=== PATIENT | female | born 1940 | race Caucasian/White ===

== ENCOUNTER → 2020-05-09 | Outpatient (CLI) | payer MEDICARE ==
[~2020-05-09] MED LIST: ACET650T15 PO; AMLO1TAB24 PO; ASPI81TA86 PO; LOVA20TA2 PO; METO1TAB7 PO
== END ==
LOC: M LABSMTC 08:07 → EDUNIT# 08:10
PROVIDERS: ATTEND Anesthesiology
DX: Z01.812 Encounter for preprocedural laboratory examination (principal); Z20.828 Contact with and (suspected) exposure to other viral communicable diseases
CPT/HCPCS: C9803; U0003

== ENCOUNTER 2020-05-14 07:26 | Day surgery (SDC) | payer MEDICARE ==
[~2020-05-14] VITALS: Ht 167.6 cm; Wt 80.3 kg
[~2020-05-14 07:26] MED LIST changes: +LR 1,000 ML IV ONE; +ceFAZolin SOD 2 GM in IV 1 EA IV ONE
[2020-05-14] MEDS ORDERED: LIDOCAINE 2% 100MG/5ML SDV (FOR ANES.) As Ordered ONE (08:11)
[2020-05-14] MEDS ORDERED: ONDANSETRON 4MG/2ML VIAL As Ordered ONE ×2 (08:11→10:47)
[2020-05-14] MEDS ORDERED: propofoL 200 MG/20 ML VIAL As Ordered ONE (08:11)
[2020-05-14] MEDS ORDERED: dexameTHASONE 4 MG/ML 1ML VIAL (J1100 PER 1MG) As Ordered ONE (08:11)
[2020-05-14] MEDS ORDERED: MIDAZOLAM INJ 2MG/2ML VIAL (J2250 PER 1MG) As Ordered ONE (08:12)
[2020-05-14] MEDS ORDERED: fentaNYL 100 MCG/2 ML INJECTION (J3010) As Ordered ONE (08:12)
[2020-05-14] MEDS ORDERED: CONRAY-60 60% 50ML VIAL (Q9961) As Ordered ONE (09:09)
[2020-05-14] MEDS ORDERED: ePHEDrine SULFATE 25 MG/5 ML(5MG/ML) SYRINGE As Ordered ONE (09:40)
[2020-05-14] MEDS ORDERED: ACETAMINOPHEN 1000MG 100ML IV BTL (OFIRMEV) (J0131 PER 10MG) As Ordered ONE (10:02)
[2020-05-14] MEDS ORDERED: ONDANSETRON 4MG/2ML VIAL IV PRN (11:00)
[2020-05-14] MEDS ORDERED: LR 1,000 ML IV SCH (11:00)
[2020-05-14] MEDS ORDERED: ACETAMINOPHEN TAB 650MG DOSE (2X325MG) PO PRN (11:00)
[2020-05-14] MEDS ORDERED: oxyCODONE 5MG TAB PO PRN (11:00)
[2020-05-14] MEDS ORDERED: METOCLOPRAMIDE INJ 10MG/2ML VIAL (J2765 PER 1) IV PRN (11:00)
[2020-05-14] MEDS ORDERED: fentaNYL 100 MCG/2 ML INJECTION (J3010) IV PRN (11:00)
[2020-05-14 12:45] VITALS: BP 158/77
--- NOTE | 2020-05-18 08:04 | REP ---
RETROGRADE PYELOGRAM: 2-VIEWS HISTORY: Left lower pole infundibular filling defect. COMPARISON: No imaging available. FLUROSCOPY TIME: 7 seconds reported. FINDINGS: A sequence of two [id number] fluoroscopically obtained spot radiographs demonstrate left ureteral cannulation, contrast injection, and double pigtail stent placement. MTDD
--- NOTE | 2020-05-18 08:57 | RO ---
DATE OF OPERATION: PREOPERATIVE DIAGNOSIS: Left renal mass. POSTOPERATIVE DIAGNOSIS: Left renal mass. PROCEDURES: * Cystoscopy. * Left ureteroscopy with biopsies of left renal pelvis mass. * Left retrograde pyelogram with intraoperative interpretative of images. * Left ureteral stent placement. SURGEON: Celso Ortega MD ELECTRICAL POWER ENGINEER: None. ANESTHESIA: General. OPERATIVE INDICATIONS: The patient is a 79-year-old female who on recent CT urogram was found to have a filling defect in the lower pole calyx of her left kidney. This CT scan was done for microscopic hematuria. She was brought to the operating room to investigate this. DESCRIPTION OF PROCEDURE: The patient was brought to the operating room and general anesthesia was induced. Prophylactic antibiotics were infused. She was placed in the dorsal lithotomy position, prepped and draped in usual sterile fashion. A semi-rigid cystoscope inserted into the urethral meatus and up into the bladder. The bladder was thoroughly examined and no abnormalities were seen inside the bladder. A guidewire was advanced up the left collecting system. I then advanced a ureteral access sheath up the left collecting system and went up with a flexible ureteroscope. Of note there were no abnormalities inside the proximal ureter except for it was a little bit narrow. The left kidney was thoroughly examined. The upper and mid pole calyces were unremarkable. Within the lower pole calyx there was a large papillary tumor at least 2-3 cm in size. I obtained several biopsies of this tumor to be sent for pathologic analysis. I also obtained washings of this area to be sent for cytology. A retrograde pyelogram was then performed and notable for mild hydronephrosis with no extravasation. There is a notable filling defect in the lower pole calyx consistent with tumor. At this point I withdrew the ureteroscope along the access sheath and no additional abnormalities were seen inside the ureter. I then utilized a guidewire and advanced a 7-Ethiopian x 22-32 cm JJ ureteral stent into the left collecting system. The wire was removed and there were adequate curls of the stent in the left renal pelvis and in the bladder. The bladder was emptied of all fluids and this marked the conclusion of the procedure. The patient was taken out of the dorsal lithotomy position, awakened from anesthesia and transferred to recovery room in stable condition. ESTIMATED BLOOD LOSS: 5 mL. COMPLICATIONS: None. SPECIMENS: Biopsies of left renal mass, left renal pelvic washings for cytology. PLAN: The patient will follow up in urology clinic next week to discuss her pathology results and any additional treatment. MTDD
== END 2020-05-14 12:45 | disposition home or self-care (01) ==
LOC: M SDC 07:26
PROVIDERS: ATTEND Urology
DX: C64.2 Malignant neoplasm of left kidney, except renal pelvis (principal); I10 Essential (primary) hypertension; E78.5 Hyperlipidemia, unspecified; J44.9 Chronic obstructive pulmonary disease, unspecified; F17.218 Nicotine dependence, cigarettes, with other nicotine-induced disorders; Z79.899 Other long term (current) drug therapy
CPT/HCPCS: 52332; 52354; 74420; 88108; 88305; C1713; C1769; C1894; J0131; J0690; J1100; J2250; J2405; J3010; Q9961

== ENCOUNTER → 2020-06-17 | Outpatient (CLI) | payer MEDICARE, OTHER ==
[~2020-06-17] MED LIST changes: -LR 1,000 ML IV ONE; -ceFAZolin SOD 2 GM in IV 1 EA IV ONE
== END ==
LOC: M LABSMTC 10:49
PROVIDERS: ATTEND Anesthesiology
DX: Z01.812 Encounter for preprocedural laboratory examination (principal); Z20.828 Contact with and (suspected) exposure to other viral communicable diseases

== ENCOUNTER 2020-06-22 06:00 | Inpatient (IN) | payer MEDICARE ==
[~2020-06-22] VITALS: Ht 167.6 cm; Wt 78.9 kg
[~2020-06-22 06:00] MED LIST changes: +LR 1,000 ML IV ONE; +ceFAZolin SOD 2 GM in IV 1 EA IV ONE
[2020-06-22] MEDS: HEPARIN SOD (PORCINE) 5000UNITS/ML 1ML VIAL/SYRINGE SC SCH ×3 (06:00→21:06)
[2020-06-22] MEDS ORDERED: LIDOCAINE 1% SDV 30ML VIAL As Ordered ONE (07:13)
[2020-06-22] MEDS ORDERED: BUPIVACAINE HCL 0.25% 30ML VIAL As Ordered ONE (07:14)
[2020-06-22] MEDS ORDERED: ACETAMINOPHEN TAB 650MG DOSE (2X325MG) PO PRN (07:30)
[2020-06-22] MEDS ORDERED: PERCOCET 5MG/325MG TAB PO PRN (07:30)
[2020-06-22] MEDS ORDERED: MORPHINE 2 MG/ML 1ML VIAL (J2270) IV PRN (07:30)
[2020-06-22] MEDS ORDERED: ONDANSETRON 4MG/2ML VIAL IV PRN ×3 (07:30→16:00)
[2020-06-22] MEDS ORDERED: LIDOCAINE 2% 100MG/5ML SDV (FOR ANES.) As Ordered ONE (08:30)
[2020-06-22] MEDS ORDERED: METOCLOPRAMIDE INJ 10MG/2ML VIAL (J2765 PER 1) As Ordered ONE (08:30)
[2020-06-22] MEDS ORDERED: propofoL 200 MG/20 ML VIAL As Ordered ONE (08:30)
[2020-06-22] MEDS ORDERED: ONDANSETRON 4MG/2ML VIAL As Ordered ONE ×2 (08:30→12:12)
[2020-06-22] MEDS ORDERED: MIDAZOLAM INJ 2MG/2ML VIAL (J2250 PER 1MG) As Ordered ONE (08:30)
[2020-06-22] MEDS ORDERED: ROCURONIUM BROMIDE 50 MG/5 ML VIAL As Ordered ONE ×2 (08:30→10:57)
[2020-06-22] MEDS ORDERED: dexameTHASONE 4 MG/ML 1ML VIAL (J1100 PER 1MG) As Ordered ONE (08:30)
[2020-06-22] MEDS ORDERED: fentaNYL 250 MCG/5 ML INJECTION (J3010) As Ordered ONE (08:30)
[2020-06-22] MEDS ORDERED: SUGAMMADEX SODIUM 500 MG/5 ML VIAL (BRIDION) As Ordered ONE (08:30)
[2020-06-22] MEDS: DOCUSATE SODIUM 100 MG CAP PO SCH ×2 (09:00→21:05)
[2020-06-22] MEDS ORDERED: HYDROmorphone HCL 2 MG/ML 1ML VIAL (J1170) As Ordered ONE (09:37)
[2020-06-22] MEDS ORDERED: ePHEDrine SULFATE 25 MG/5 ML(5MG/ML) SYRINGE As Ordered ONE (09:51)
[2020-06-22] MEDS ORDERED: fentaNYL 100 MCG/2 ML INJECTION (J3010) As Ordered ONE (13:06)
[2020-06-22] MEDS: fentaNYL 100 MCG/2 ML INJECTION (J3010) IV PRN ×7 (13:12→14:05)
[2020-06-22] MEDS ORDERED: LR 1,000 ML IV SCH ×2 (13:15→16:00)
[2020-06-22] MEDS ORDERED: METOCLOPRAMIDE INJ 10MG/2ML VIAL (J2765 PER 1) IV PRN ×2 (13:15→16:00)
[2020-06-22] MEDS ORDERED: oxyCODONE 5MG TAB PO PRN ×2 (13:15→16:00)
[2020-06-22] MEDS ORDERED: MEPERIDINE INJ 25 MG/ML VIAL (J2175) IV PRN ×2 (13:15→16:00)
[2020-06-22 13:29] LABS: HEMATOCRIT 46.1 % (36.0-47.0); HEMOGLOBIN 14.9 g/dl (12.0-15.5); MEAN CORPUSCULAR HEMOGLOBIN 30.7 pg (27.0-33.0); MEAN CORPUSCULAR HGB CONC 32.3 g/dl (32.0-36.5); MEAN CORPUSCULAR VOLUME 94.9 fl (80.0-96.0); PLATELET COUNT, AUTOMATED 277 10^3/uL (150-450); RED BLOOD COUNT 4.86 10^6/uL (4.00-5.40); WHITE BLOOD COUNT 9.5 10^3/uL (4.0-10.0)
--- NOTE | 2020-06-22 13:48 | ROOPDOC ---
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 POSTPROCEDURE DIAGNOSIS: Left upper tract urothelial carcinoma. PROCEDURE: Left robotic-assisted laparoscopic nephroureterectomy with bladder cuff, cystoscopy with incision of the left ureteral orifice. SURGEON: Fazal Liang MD MACHINING AND ASSEMBLY SUPERVISOR: Minerva Landers ANESTHESIA: General OPERATIVE INDICATIONS: This is a 79-year-old female who was recently diagnosed with upper tract urothelial carcinoma that could not managed endoscopically. It was recommended that she be brought to the operating room today for this procedure for treatment. DESCRIPTION OF PROCEDURE: The patient was brought to the operating room where general anesthesia was induced. Prophylactic antibiotics were infused. She was then placed in the dorsal lithotomy position and prepped and draped in the usual sterile fashion. A resectoscope was then passed into the bladder using the visual obturator. The left ureteral orifice was identified with the previously placed stent coming out of it. Next, using a Couch knife, a circumferential incision was made around the left ureteral orifice. This was carried down until the fat could be seen. Hemostasis was then obtained using a coagulation current. The resectoscope was then removed and a #18-Luxembourgish Cortez catheter was placed with 10 mL of sterile water injected into the balloon. At this point, the patient was taken from the dorsal lithotomy position, and placed in a right lateral decubitus position. All pressure points were appropriately padded and an axillary roll was placed. We then secured the patient to the table with tape. Her abdomen was then prepped and draped in the usual sterile fashion. Next, an 8mm incision was made in line with the 11th rib along the lateral border of the rectus. Pneumoperitoneum was achieved with a Veress needle. Next, an 8mm port was placed for the camera. At this point, the left robotic port was placed off the costal margin. Two right hand robotic ports were then placed with one between the anterior superior iliac spine and the hip and the other one just caudal to the camera port. The one just caudal to the camera port was a 12mm robotic port. Last the 15 mm stonecutter assistant port was placed inferior and medial to the camera port. The robot was then docked. Attachments between the spleen and the Gerota's fascia were then released. The left colon was then mobilized medially. At this point, after mobilizing the left colon completely, we then developed a plane onto the psoas muscle off the lower pole of the kidney. The left gonadal vein was identified and was carried cephalad until the left renal vein was encountered. Posterior to the vein the renal artery was identified. It was carefully dissected and ligated with 3 Weck clips and then transected in between, leaving 2 Weck clips on the stay side. After this the left renal vein was carefully dissected. Once this was done, the left renal vein was ligated and transected using a robotic 45mm endovascular stapler. We then began mobilizing the kidney on all sides. The left adrenal gland was identified and was dissected away and spared. After mobilizing the left kidney on all sides, its only remaining attachment was the left ureter. We then dissected the left ureter down into the pelvis. We then dissected the ureter all the way down to the level of the bladder. The ureter was then released from the bladder at this level and after releasing the ureter from the bladder, the cystotomy was closed with a #3-0 V-loc suture. When the ureter was released from the bladder, the previously placed stent was removed as well. The bladder was then filled with saline and the cystotomy closure appeared watertight. At this point, we checked for hemostasis and hemostasis appeared excellent. We then placed the left kidney and ureter and stent in a large EndoCatch bag. This bag was closed and then left for future retrieval. At this point, we utilized the 8mm right hand robotic port to advance a Brennan-Damico drain into the abdomen. This drain was placed in the pelvis. We then undocked the robot and a iBju-Alvin fascial closure device was utilized to place a 0-vicryl suture through the fascia of the 15mm port site. We then extended the incision of the 12mm right hand robotic port site to extract the specimen. We then dissected down through the musculofascial layers and extended the fascia. The muscle was bluntly spread, and we then extracted the specimen through this incision. Once that was done, we checked for hemostasis through the extraction incision and it appeared excellent. The muscle was then reapproximated using a fwgsrv-mi-hften #0 Vicryl suture. The fascia of this incision was then closed with a running #0 Vicryl suture. At this point, the abdomen was then reinsufflated. We looked at the extraction incision, and there was no active bleeding and no abdominal contents were caught within the suture. Once this was done, all the remaining ports were removed and there was no bleeding. We then tied down the #0 Vicryl suture in the 15mm port site. The previously placed Brennan-Damico (LILIAM) drain was then secured to the skin using a #3-0 Ethilon suture. Once this was done, all wounds were thoroughly irrigated. The subcutaneous fat of the extraction incision was then closed with interrupted #3-0 Vicryl sutures. We then closed the skin of all incisions using subcuticular #4-0 Monocryl suture. Local anesthetic was then applied and then Dermabond was applied and marked the conclusion of the procedure. The patient was then taken out of the right lateral decubitus position, awakened from anesthesia and transported to the recovery room in stable condition. ESTIMATED BLOOD LOSS: 25mL. COMPLICATIONS: None. SPECIMENS: Left kidney and ureter. PLAN: The patient will be admitted to the hospital postoperatively for monitoring. Her catheter will be kept in place for approximately 10 days to allow her bladder to heal. FAZAL LIANG MD Jun 22, 2020 13:48
[2020-06-22 14:05] LABS: CALCIUM LEVEL 8.8 MG/DL (8.8-10.2); CREATININE FOR GFR 1.26 MG/DL (0.55-1.30); GLOMERULAR FILTRATION RATE 43.7 (>39); POTASSIUM SERUM 3.8 MEQ/L (3.5-5.1)
[2020-06-22 15:00] VITALS: BP 162/95
[2020-06-22] MEDS: NS 1,000 ML IV SCH ×2 (15:20→20:46)
[2020-06-22] MEDS: ceFAZolin SOD 1 GM in D5W MINI-BAG PLUS 50 ML IV SCH (15:26)
[2020-06-22 15:30] VITALS: BP 164/95
[2020-06-22] MEDS ORDERED: fentaNYL 100 MCG/2 ML INJECTION (J3010) IV PRN (16:00)
[2020-06-22 16:30] VITALS: BP 163/92
[2020-06-22 19:30] VITALS: BP 161/88
[2020-06-22 22:00] VITALS: BP 159/87
[2020-06-23] MEDS: ceFAZolin SOD 1 GM in D5W MINI-BAG PLUS 50 ML IV SCH (00:27)
[2020-06-23] MEDS: NS 1,000 ML IV SCH (00:27)
[2020-06-23 02:00] VITALS: BP 143/73
[2020-06-23] MEDS: PERCOCET 5MG/325MG TAB PO PRN ×3 (05:26→17:33)
[2020-06-23] MEDS: HEPARIN SOD (PORCINE) 5000UNITS/ML 1ML VIAL/SYRINGE SC SCH ×3 (05:29→21:01)
[2020-06-23 06:00] VITALS: BP 141/72
[2020-06-23 06:59] LABS: HEMATOCRIT 40.2 % (36.0-47.0); MEAN CORPUSCULAR HEMOGLOBIN 29.8 pg (27.0-33.0); MEAN CORPUSCULAR HGB CONC 31.3 g/dl (32.0-36.5); PLATELET COUNT, AUTOMATED 246 10^3/uL (150-450); RED BLOOD COUNT 4.23 10^6/uL (4.00-5.40); WHITE BLOOD COUNT 9.5 10^3/uL (4.0-10.0)
[2020-06-23 07:03] LABS: HEMOGLOBIN 12.6 g/dl (12.0-15.5)
[2020-06-23 07:20] LABS: CALCIUM LEVEL 8.2 MG/DL (8.8-10.2); CREATININE FOR GFR 1.54 MG/DL (0.55-1.30); GLOMERULAR FILTRATION RATE 34.7 (>39); POTASSIUM SERUM 4.5 MEQ/L (3.5-5.1)
--- NOTE | 2020-06-23 07:59 | IPNPDOC ---
Subjective Review oF Systems Chief Complaint The patient is a 79-year-old female admitted with a reason for visit of Urothelial Carcinoma. Events since Last Encounter No acute events o/n. Good pain control. No n/v. Ambulated last night w/o difficulty. No f/c/ns. Objective Physical Examination General Exam: Alert, Cooperative ABDOMEN EXAM: Soft, Tenderness (mild), Other (incisions clean/dry/intact; LILIAM w/ serosanguinous output) Skin Exam: Nl turgor and temperature Neuro Exam: Normal Speech Psych Exam: Mental status NL, Mood NL Other physical findings catheter draining clear urine Vital Signs/I&O Vital Signs Date Time Temp Pulse Resp B/P (MAP) Pulse Ox O2 Delivery O2 Flow Rate FiO2 06/23/20 06:00 98.1 72 16 141/72 (95) 96 Room Air 06/22/20 14:05 2.0 I&O- Last 24 Hours up to 6 AM 06/23/20 06:00 Intake Total 3850 ml Output Total 990 ml Balance 2860 ml Laboratory Data Labs 24H Laboratory Tests 2 06/22/20 13:14: Nucleated Red Blood Cells % (auto) 0.0, Anion Gap 6L, Glomerular Filtration Rate 43.7, Calcium Level 8.8 06/23/20 06:14: Nucleated Red Blood Cells % (auto) 0.0, Anion Gap 4L, Glomerular Filtration Rate 34.7L, Calcium Level 8.2L CBC/BMP Laboratory Tests 06/22/20 13:14 06/23/20 06:14 Assessment/Plan Date Seen The patient was seen on 06/23/20. Patient Summary This is a 79 y/o F POD1 s/p L robotic nephrureterectomy. Doing well. Hb 12.6. Cr 1.5. Good UOP. Plan/VTE VTE Prophylaxis Ordered?: Yes VTE Exclusion Mechanical Proph: N/A:VTE Prophy Ordered VTE Exclusion Pharmacological: N/A:VTE Prophy Ordered Plan/Urinary Catheter Urinary Catheter: Other Catheter: (catheter will need to stay in for 7 days for bladder healing) Plan - percocet prn pain - cont home meds - d/c IVF - strict I/Os - SCDs when in bed - ambulate - SQH - incentive spirometry - advance diet as tolerated - possible discharge home later today w/ catheter (will remove LILIAM prior to disc harge) FAZAL LIANG L. MD Jun 23, 2020 07:59
[2020-06-23] MEDS: DOCUSATE SODIUM 100 MG CAP PO SCH ×2 (08:10→20:58)
[2020-06-23] MEDS: METOPROLOL SUCC (TopROL XL) 50MG **XL** TAB PO SCH (08:11)
[2020-06-23] MEDS: amLODIPine 5 MG TAB PO SCH (08:12)
[2020-06-23 10:00] VITALS: BP 116/51
[2020-06-23 13:39] LABS: HEMATOCRIT 43.8 % (36.0-47.0); HEMOGLOBIN 14.2 g/dl (12.0-15.5); MEAN CORPUSCULAR HEMOGLOBIN 30.8 pg (27.0-33.0); MEAN CORPUSCULAR HGB CONC 32.4 g/dl (32.0-36.5); PLATELET COUNT, AUTOMATED 249 10^3/uL (150-450); RED BLOOD COUNT 4.61 10^6/uL (4.00-5.40); WHITE BLOOD COUNT 9.5 10^3/uL (4.0-10.0)
[2020-06-23 14:00] VITALS: BP 130/59
[2020-06-23 14:06] LABS: CALCIUM LEVEL 9.1 MG/DL (8.8-10.2); CREATININE FOR GFR 1.64 MG/DL (0.55-1.30); GLOMERULAR FILTRATION RATE 32.3 (>39); POTASSIUM SERUM 3.9 MEQ/L (3.5-5.1)
[2020-06-23 18:00] VITALS: BP 154/77
[2020-06-23 22:00] VITALS: BP 127/59
[2020-06-24] MEDS: PERCOCET 5MG/325MG TAB PO PRN (00:08)
[2020-06-24 02:00] VITALS: BP 145/89
[2020-06-24 06:03] LABS: HEMATOCRIT 42.4 % (36.0-47.0); HEMOGLOBIN 13.8 g/dl (12.0-15.5); MEAN CORPUSCULAR HEMOGLOBIN 30.5 pg (27.0-33.0); MEAN CORPUSCULAR HGB CONC 32.5 g/dl (32.0-36.5); MEAN CORPUSCULAR VOLUME 93.6 fl (80.0-96.0); PLATELET COUNT, AUTOMATED 233 10^3/uL (150-450); RED BLOOD COUNT 4.53 10^6/uL (4.00-5.40); WHITE BLOOD COUNT 9.4 10^3/uL (4.0-10.0)
[2020-06-24 06:05] VITALS: BP 178/98
[2020-06-24 06:22] LABS: CREATININE FOR GFR 1.65 MG/DL (0.55-1.30); POTASSIUM SERUM 4.1 MEQ/L (3.5-5.1)
[2020-06-24] MEDS: HEPARIN SOD (PORCINE) 5000UNITS/ML 1ML VIAL/SYRINGE SC SCH (06:38)
--- NOTE | 2020-06-24 08:20 | IPNPDOC ---
Subjective Review oF Systems Chief Complaint The patient is a 79-year-old female admitted with a reason for visit of Urothelial Carcinoma. Events since Last Encounter No acute events o/n. Good pain control. No n/v. Tolerating regular diet. Ambulating well. No f/c/ns. Objective Physical Examination General Exam: Alert, Cooperative ABDOMEN EXAM: Soft, Tenderness (mild), Other (incisions clean/dry/intact; LILIAM w/ serosanguinous output) Skin Exam: Nl turgor and temperature Neuro Exam: Normal Speech Psych Exam: Mental status NL, Mood NL Other physical findings catheter draining yellow urine Vital Signs/I&O Vital Signs Date Time Temp Pulse Resp B/P (MAP) Pulse Ox O2 Delivery O2 Flow Rate FiO2 06/24/20 06:05 98.2 77 18 178/98 (124) 94 Room Air 06/22/20 14:05 2.0 I&O- Last 24 Hours up to 6 AM 06/24/20 06:00 Intake Total 1930 ml Output Total 1145 ml Balance 785 ml Laboratory Data Labs 24H Laboratory Tests 2 06/23/20 13:11: Nucleated Red Blood Cells % (auto) 0.0, Anion Gap 7L, Glomerular Filtration Rate 32.3L, Calcium Level 9.1 06/24/20 05:25: Nucleated Red Blood Cells % (auto) 0.0, Anion Gap 7L, Glomerular Filtration Rate 32.0L, Calcium Level 9.0 CBC/BMP Laboratory Tests 06/23/20 13:11 06/24/20 05:25 Assessment/Plan Date Seen The patient was seen on 06/24/20. Patient Summary This is a 79 y/o F POD2 s/p left robotic nephroureterectomy. Doing well. Hb stable. Cr stable at 1.65. Good UOP. Minimal LILIAM output. Plan/VTE VTE Prophylaxis Ordered?: Yes VTE Exclusion Mechanical Proph: N/A:VTE Prophy Ordered VTE Exclusion Pharmacological: N/A:VTE Prophy Ordered Plan/Urinary Catheter Urinary Catheter: D/C Cortez, Other Catheter: Plan - will d/c Cortez this morning - monitor LILIAM for increase in output once Cortez removed - percocet prn pain - continue home meds - strict I/Os - ambulate - SCDs when in bed - SQH - incentive spirometry - discharge home later today once patient voids (will d/c LILIAM prior to discharge - assuming no increase in output w/ Cortez removal) FAZAL LIANG MD Jun 24, 2020 08:19
[2020-06-24 08:31] VITALS: BP 178/98
[2020-06-24] MEDS: DOCUSATE SODIUM 100 MG CAP PO SCH (08:31)
[2020-06-24] MEDS: METOPROLOL SUCC (TopROL XL) 50MG **XL** TAB PO SCH (08:31)
[2020-06-24] MEDS: amLODIPine 5 MG TAB PO SCH (08:31)
[2020-06-24 10:00] VITALS: BP 156/68
[2020-06-24] MEDS ORDERED: PERCOCET PO (12:38)
[2020-06-24] MEDS ORDERED: DOCU100C16 PO (12:38)
--- NOTE | 2020-06-25 10:43 | DSES ---
DATE OF ADMISSION: 06/22/2020 DATE OF DISCHARGE: 06/24/2020 ADMISSION DIAGNOSIS: Urothelial carcinoma. DISCHARGE DIAGNOSIS: Urothelial carcinoma. ADMITTING PHYSICIAN: Celso Ortega MD DISCHARGE PHYSICIAN: Celso Ortega MD PROCEDURES PERFORMED: Left robotic-assisted laparoscopic nephroureterectomy on June 22, 2020. HISTORY OF PRESENT ILLNESS: This is a 79-year-old female who was found to have urothelial carcinoma involving her left kidney on a recent ureteroscopy. After careful consideration, it was recommended that she undergo the above procedure for treatment. She was admitted to the hospital postoperatively. HOSPITALIZATION COURSE: The patient was admitted to the hospital on June 22, 2020 after undergoing the above-listed procedure. Her postoperative course was for the most part unremarkable. On postoperative day one, she had good pain control and is ambulating well without difficulty. Her labs were notable for stable hemoglobin around 14. Of note, her serum creatinine went up to 1.54 the morning of postoperative day one. There was consideration for discharging her home on postoperative day one but we rechecked her labs in the afternoon of postoperative day one and her creatinine kept going up and it was 1.6 at that time. The decision was made to keep her in-house until her creatinine stabilized. By postoperative day two her creatinine was stable at 1.65. She had excellent urine output throughout her hospital stay. All of her vital signs were within normal limits. Her Brennan-Damico drain had minimal output. We removed her catheter the morning of postoperative day two and she voided without difficulty. There was no change in Brennan-Damico output when we removed the catheter, and therefore the Brennan-Damico drain was removed on postoperative day two as well. She is tolerating a regular diet and being readied for discharge home. She is therefore discharged home with the plan for her to follow up in Urology Clinic in approximately ten days for a postoperative visit. KRISH
== END 2020-06-24 14:00 | disposition home or self-care (01) | DRG 658 ==
LOC: M OR 06:00 → M MS5PR 15:00
PROVIDERS: ADMIT Urology; ATTEND Urology
PROC: 0TT74ZZ Resection of Left Ureter, Percutaneous Endoscopic Approach (ICD-10-PCS; 2020-06-22)
PROC: 8E0W4CZ Robotic Assisted Procedure of Trunk Region, Percutaneous Endoscopic Approach (ICD-10-PCS; 2020-06-22)
PROC: 0TT14ZZ Resection of Left Kidney, Percutaneous Endoscopic Approach (ICD-10-PCS; principal; 2020-06-22 07:30)
DX: C68.9 Malignant neoplasm of urinary organ, unspecified (principal); I10 Essential (primary) hypertension; J44.9 Chronic obstructive pulmonary disease, unspecified

== ENCOUNTER → 2020-10-25 | Outpatient (REF) | payer MEDICARE ==
[~2020-10-25] MED LIST changes: +DOCU100C16 PO; -LR 1,000 ML IV ONE; +PERCOCET PO; -ceFAZolin SOD 2 GM in IV 1 EA IV ONE
== END ==
LOC: M SMT 13:30
PROVIDERS: ATTEND Urology
DX: C68.9 Malignant neoplasm of urinary organ, unspecified (principal)

== ENCOUNTER → 2021-03-15 | Outpatient (REF) | payer MEDICARE | LOC: M SMT 17:22 | PROVIDERS: ATTEND Urology | DX: C68.9 Malignant neoplasm of urinary organ, unspecified (principal) ==

== ENCOUNTER → 2021-05-02 | Outpatient (REF) | payer MEDICARE | LOC: M LAB REF 12:54 | PROVIDERS: ATTEND Internal Medicine Nephrology | DX: N18.32 Chronic kidney disease, stage 3b (principal) ==

== ENCOUNTER → 2021-07-15 | Outpatient (REF) | payer MEDICARE | LOC: M SMT 17:44 | PROVIDERS: ATTEND Urology | DX: C68.9 Malignant neoplasm of urinary organ, unspecified (principal) | CPT/HCPCS: 52000; 88108; G0463 ==

== ENCOUNTER → 2021-08-09 | Outpatient (REF) | payer MEDICARE | LOC: M LAB REF 12:57 | PROVIDERS: ATTEND Nurse Practitioner Family | DX: N25.81 Secondary hyperparathyroidism of renal origin (principal) ==

== ENCOUNTER → 2021-10-17 | Outpatient (REF) | payer MEDICARE | LOC: M SMT 17:05 | PROVIDERS: ATTEND Urology | DX: C68.9 Malignant neoplasm of urinary organ, unspecified (principal) ==

== ENCOUNTER → 2022-04-24 | Outpatient (REF) | payer MEDICARE | LOC: M SMT 15:17 | PROVIDERS: ATTEND Urology | DX: C68.9 Malignant neoplasm of urinary organ, unspecified (principal) ==

== ENCOUNTER → 2022-10-23 | Outpatient (REF) | payer MEDICARE | LOC: M SMT 12:58 | PROVIDERS: ATTEND Urology | DX: C68.9 Malignant neoplasm of urinary organ, unspecified (principal) ==

== ENCOUNTER → 2024-05-13 | Outpatient (REF) | payer MEDICARE | LOC: M SMT 17:19 | PROVIDERS: ATTEND Urology | DX: C68.9 Malignant neoplasm of urinary organ, unspecified (principal) ==

== ENCOUNTER → 2025-05-18 | Outpatient (REF) | payer OTHER ==
[~2025-05-18] MED LIST changes: +ACET-1515 PO; -ACET650T15 PO
== END ==
LOC: M SMT 13:07
PROVIDERS: ATTEND Urology
DX: C68.9 Malignant neoplasm of urinary organ, unspecified (principal)